=== PATIENT | female | born 1965 | race Caucasian/White ===

== ENCOUNTER → 2022-05-30 | Day surgery (SDC) | payer BC ==
[~2022-05-30] MED LIST: Flumazenil 0.1 MG/ML 10 ML MDV ONE; Ketamine 200 MG/20 ML MDV ONE; Ketorolac 30 MG/ML SDV ONE; Labetalol 100 MG/20 ML MDV ONE; Lidocaine 0.5% 50 ML SDV ONE; Lidocaine 2% with EPINEPHrine 1:200,000 10 ML SDV INJECT ONE; Midazolam 1 MG/ML 2 ML SDV ONE; Ondansetron 4 MG/2 ML SDV ONE; Propofol 200 MG/20 ML SDV ONE; fentaNYL 50 MCG/ML SDV ONE
[2022-05-30] MEDS: Lactated Ringers 1,000 ML IV SCH (10:52)
[2022-05-30] MEDS: Lidocaine 2% with EPINEPHrine 1:200,000 10 ML SDV INJECT ONE ×2 (11:34→12:03)
[2022-05-30 14:34] VITALS: BP 135/72; PULSE 69
== END ==
LOC: CC.SDS 10:35
PROVIDERS: ATTEND Surgery
DX: M67.432 Ganglion, left wrist (principal); M71.122 Other infective bursitis, left elbow; L72.0 Epidermal cyst; J44.9 Chronic obstructive pulmonary disease, unspecified; K21.9 Gastro-esophageal reflux disease without esophagitis; I10 Essential (primary) hypertension; F17.200 Nicotine dependence, unspecified, uncomplicated; M81.0 Age-related osteoporosis without current pathological fracture; Z88.0 Allergy status to penicillin; Z79.899 Other long term (current) drug therapy; Z98.890 Other specified postprocedural states
CPT/HCPCS: 24105; 25111; J1885; J2250; J2405; J2704; J3010; J3490; J7120

== ENCOUNTER → 2023-10-24 | Day surgery (SDC) | payer BC ==
[~2023-10-24] MED LIST changes: -Ketorolac 30 MG/ML SDV ONE; -Labetalol 100 MG/20 ML MDV ONE; +Lactated Ringers 1,000 ML IV SCH; -Lidocaine 0.5% 50 ML SDV ONE; +Lidocaine 1% 30 ML SDV ONE; -Lidocaine 2% with EPINEPHrine 1:200,000 10 ML SDV INJECT ONE; -Ondansetron 4 MG/2 ML SDV ONE
[2023-10-24 11:01] VITALS: BP 108/64; PULSE 72
== END ==
LOC: CC.SDS 08:48
PROVIDERS: ATTEND Family Medicine
DX: D12.0 Benign neoplasm of cecum (principal); K29.80 Duodenitis without bleeding; K29.30 Chronic superficial gastritis without bleeding; K57.30 Diverticulosis of large intestine without perforation or abscess without bleeding; I10 Essential (primary) hypertension; K21.9 Gastro-esophageal reflux disease without esophagitis; F17.200 Nicotine dependence, unspecified, uncomplicated; Z79.899 Other long term (current) drug therapy; Z88.0 Allergy status to penicillin
CPT/HCPCS: 00813; 87081; J2250; J2704; J3010; J3490; J7120

== ENCOUNTER 2024-07-27 12:03 | Emergency (ER) | payer OTHER, BC ==
[2024-07-27 12:42] VITALS: BP 146/79; PULSE 78
[2024-07-27] MEDS: Diphtheria,Pertussis(Acell),Tetanus Vaccine 0.5 ML Syringe IM ONE (12:52)
[2024-07-27] MEDS: Bacitracin Oint 1 GM U/D Packet TOP ONE (12:52)
[2024-07-27] MEDS: Lidocaine 1% with EPINEPHrine 1:100,000 10 ML MDV INJECT ONE (12:55)
[2024-07-27] MEDS: Lidocaine 1% with EPINEPHrine 1:100,000 10 ML MDV ONE (12:56)
== END 2024-07-27 13:03 | disposition home or self-care (01) ==
LOC: CC.ED 12:03
DX: S61.412A Laceration without foreign body of left hand, initial encounter (principal); Z79.899 Other long term (current) drug therapy; Z88.0 Allergy status to penicillin; W26.8XXA Contact with other sharp object(s), not elsewhere classified, initial encounter; Y93.E5 Activity, floor mopping and cleaning
CPT/HCPCS: 12001; 90715; 99282; 99283; J3490

== ENCOUNTER 2024-08-01 09:42 | Emergency (ER) | payer OTHER, BC ==
[2024-08-01 09:47] VITALS: BP 126/60; PULSE 81
[2024-08-01] MEDS: cefTRIAXone 1 GM, Lidocaine 1% 2.1 ML IM SCH (09:56)
[2024-08-01] MEDS: Lidocaine 1% 5 ML VIAL ONE (10:32)
== END 2024-08-01 10:33 | disposition home or self-care (01) ==
LOC: CC.ED 09:42
DX: L76.82 Other postprocedural complications of skin and subcutaneous tissue (principal); F17.210 Nicotine dependence, cigarettes, uncomplicated; Z88.0 Allergy status to penicillin; Z79.899 Other long term (current) drug therapy
CPT/HCPCS: 96372; 99283; J0696; J3490

== ENCOUNTER 2025-04-03 06:59 | Emergency (ER) | payer BC ==
[2025-04-03] MEDS ORDERED: Sodium Chloride 0.9% 10 ML Syringe FLUSH PRN (07:02)
[2025-04-03] MEDS: methylPREDNISolone Sodium Succinate 125 MG/2 ML SDV IVPUSH STA (07:11)
[2025-04-03] MEDS: diphenhydrAMINE 25 MG Cap PO ONE (07:11)
[2025-04-03] MEDS: Take Home: predniSONE 20 MG, 2 Tab Pack PO ONE (07:19)
[2025-04-03] MEDS: cloNIDine 0.1 MG Tab PO STA (07:32)
[2025-04-03] MEDS: Losartan 25 MG Tab PO STA (07:55)
[2025-04-03 08:27] VITALS: PULSE 72
[2025-04-03 10:12] VITALS: BP 207/101
== END 2025-04-03 09:00 | disposition home or self-care (01) ==
LOC: CC.ED 06:59
DX: T78.3XXA Angioneurotic edema, initial encounter (principal); T46.4X5A Adverse effect of angiotensin-converting-enzyme inhibitors, initial encounter; I10 Essential (primary) hypertension; Z88.0 Allergy status to penicillin; Z79.899 Other long term (current) drug therapy
CPT/HCPCS: 96374; 99283-25; A9270-GY; J2919; J7512